=== PATIENT | male | born 1960 | race Caucasian/White ===

== ENCOUNTER 2019-12-26 08:42 | Outpatient (REF) | payer OTHER, SELFPAY | END 2019-12-26 08:43 | disposition home or self-care (01) | LOC: HO.LAB 08:42 | PROVIDERS: Visit Provider Internal Medicine Nephrology | DX: Z13.89 Encounter for screening for other disorder (principal) ==

== ENCOUNTER 2019-12-28 09:17 | Outpatient (REF) | payer OTHER, SELFPAY ==
[2019-12-28 11:01] LABS: Glucose Urine UA NEG (NEG); Leukocyte Esterase Urine NEG (NEG); Nitrite Urine NEG (NEG); Specific Gravity - Urine 1.025 (1.005-1.025); Urine Blood TRACE (NEG); Urine Ketones NEG (NEG); Urine Protein NEG (NEG-TRACE)
[2019-12-28 11:01] LABS: Anion Gap 10 (12-20); Blood Urea Nitrogen 12 mg/dL (9-16); Calcium 9.5 mg/dL (8.4-10.2); Carbon Dioxide 28 mmol/L (22-29); Chloride 103 mmol/L (96-108); Estimated Glomerular Filt Rate > 60; Magnesium 2.1 mg/dL (1.6-2.6); Phosphorus 2.6 mg/dL (2.7-4.5); Sodium 137 mmol/L (135-145)
[2019-12-28 11:09] LABS: Appearance Urine HAZY; Color Urine YELLOW
[2019-12-28 11:25] LABS: Vitamin D 25-OH Total 17.2 ng/mL (>30)
[2019-12-28 11:29] LABS: Mucus Urine 2+ /LPF; RBC Urine 0-2 /HPF (0); Squamous Epithelial Cell Urine TRACE /LPF; WBC Urine 0-2 /HPF (0-4)
[2019-12-28 11:30] LABS: Creatinine Urine 245.04 mg/dL; Protein/Creatinine Ratio, Ur 0.05 (<0.2); Renal w Reflex-LAB USE ONLY Order Verified; Total Protein Urine Random 12 mg/dL (<12)
[2019-12-28 11:32] LABS: Creatinine Urine 248.35 mg/dL; Microalbum/Creatinine Ratio Ur 3.2 ug/mg cr; Total Protein Urine Random 12 mg/dL (<12)
[2019-12-28 11:57] LABS: Renal w Reflex Lab Use Only Order verified
[2019-12-28 11:59] LABS: Total Volume 24 Hour Urine 1850 mL
[2019-12-28 12:01] LABS: Total Volume 24 Hour Urine 1850 mL
[2019-12-28 12:12] LABS: Total Volume 24 Hour Urine 1850 mL
[2019-12-28 12:57] LABS: Creatinine, 24Hr Urine 1.3 G/Day (1.0-2.0); Creatinine, mg/dL 67.88; Creatinine, mg/dL 68.48; Phosphorus mg/dL 39.7 mg/dL; Phosphorus, 24 Hr Urine 0.7 G/Day (0.4-1.3); Sodium 24 Hr Urine 140.6 mmol/Day (40-220)
[2019-12-28 13:25] LABS: Creatinine, 24Hr Urine 1.3 G/Day (1.0-2.0); Creatinine, mg/dL 70.31; Uric Acid, 24 Hr Urine 390.4 mg/Day (250-750); Uric Acid, mg/dL 21.1 mg/dL
[2019-12-28 14:04] LABS: Creatinine (CrCl) 1.02 mg/dL (0.5-1.4); Creatinine Clearance 85.4 mL/min (85-125)
[2019-12-30 18:02] LABS: Calcium, 24 Hr Urine 165 mg/24 h; Calcium/Creatinine Ratio 125 mg/g creat (30-210); Creatinine 24Hr Urine 1.31 g/24 h (0.50-2.15)
[2019-12-30 23:07] LABS: Calcium (PTHI) 10.1 mg/dL (8.6-10.3); PTHI 65 pg/mL (14-64)
[2019-12-31 16:02] LABS: Creatinine, 24H Ur 1.26 g/24 h (0.50-2.15); Magnesium, 24H Urine 56 mg/24 h (28-180); Magnesium, Urine 24H/g Creat 44 mg/g creat (16-90); Total Volume 1850 mL
[2020-01-04 13:56] LABS: 24hr Urine Total Volume 1850 mL; Citric Acid, 24hr Urine 694 mg/24 h (100-1300); Citric Acid/Creat Ratio 24U 547 mg/g creat (60-660); Creatinine, 24U 1.31 g/24 h (0.50-2.15); Oxalic Acid 24 Urine 20.4 mg/24 h (3.6-38.0)
== END 2019-12-28 09:18 | disposition home or self-care (01) ==
LOC: HO.LAB 09:17
PROVIDERS: Visit Provider Internal Medicine Nephrology
DX: N20.0 Calculus of kidney (principal); I12.9 Hypertensive chronic kidney disease with stage 1 through stage 4 chronic kidney disease, or unspecified chronic kidney disease; E11.22 Type 2 diabetes mellitus with diabetic chronic kidney disease; N18.9 Chronic kidney disease, unspecified
CPT/HCPCS: 80051; 81001; 81003; 81015; 82040; 82043; 82306; 82310; 82340; 82507; 82565; 82575; 83735; 83945; 83970; 84100; 84105; 84156; 84300; 84520; 84560

== ENCOUNTER 2022-12-12 10:52 | Outpatient (REF) | payer OTHER, SELFPAY | END 2022-12-12 10:53 | disposition home or self-care (01) | LOC: HO.HHCL 10:52 | PROVIDERS: Visit Provider Nurse Practitioner Primary Care | DX: E11.69 Type 2 diabetes mellitus with other specified complication (principal); E78.5 Hyperlipidemia, unspecified | CPT/HCPCS: 36415; 80053; 80061; 82043; 82570 ==

== ENCOUNTER 2023-12-24 10:50 | Outpatient (REF) | payer OTHER, SELFPAY ==
[2023-12-24 13:51] LABS: Alanine Aminotransferase 18 U/L (0-40); Albumin Level 4.1 g/dL (3.5-5.0); Alkaline Phosphatase 81 U/L (39-117); Anion Gap 11 (12-20); Aspartate Amino Transferase 19 U/L (5-37); Bilirubin Total 0.5 mg/dL (0.0-1.0); Blood Urea Nitrogen 14 mg/dL (9-16); Calcium 10.5 mg/dL (8.4-10.2); Carbon Dioxide 28 mmol/L (22-29); Chloride 103 mmol/L (96-108); Cholesterol 135 mg/dL (<200); Estimated Glomerular Filt Rate > 60; Glucose Random 105 mg/dL (60-115); HDL Cholesterol 41 mg/dL (>40); LDL Cholesterol Calculated 72 mg/dL (<100); Sodium 138 mmol/L (135-145); Total Protein 7.5 g/dL (6.5-8.0); Triglycerides 113 mg/dL (<150)
[2023-12-24 14:24] LABS: Vitamin B12 236 pg/mL (200-900)
== END 2023-12-24 10:51 | disposition home or self-care (01) ==
LOC: HO.CHCLDS 10:50
PROVIDERS: Visit Provider Nurse Practitioner Primary Care
DX: E11.69 Type 2 diabetes mellitus with other specified complication (principal); E78.5 Hyperlipidemia, unspecified
CPT/HCPCS: 36415; 80053; 80061; 82607

== ENCOUNTER 2024-02-25 08:53 | Outpatient (REF) | payer MEDICARE, SELFPAY | END 2024-02-25 08:54 | disposition home or self-care (01) | LOC: HO.HOSX 08:53 | PROVIDERS: Visit Provider Physician Assistant | DX: M25.511 Pain in right shoulder (principal); M75.81 Other shoulder lesions, right shoulder | CPT/HCPCS: 73030; 99202 ==

== ENCOUNTER 2024-02-25 09:15 | Outpatient (AMB) | payer MEDICARE, SELFPAY ==
--- NOTE | 2024-02-25 09:22 | A.OFFVIS_ITS ---
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 He was seen by his PCP who referred to orthopedics. Patient reports his pain has been present for about 12-13 years. He has not had any previous tx. Denies hx of injury. His pain has been getting worse. Limited ROM. Finds no relief with taking morphine and percocet that is prescribed for his back condition. 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 He denies any shoulder injury or surgery in the past. He was seen by his PCP for the shoulders who referred him to our office. He states he has limited ROM and worsening bilateral shoulder pain that is worse on his right. His pain in aggravated at night. He also experiences shoulder pain with lifting his hand to grab something as well as with overusing his arm. He finds no relief with morphine, Percocet and back injections that was prescribed for his back condition. He has not had any prior treatment. [facility] Surgical History (Updated 02/25/24 @ 09:34 by VALERIA Crowley) History of left knee surgery History of appendectomy History of hernia surgery Social History (Updated 02/25/24 @ 09:35 by VALERIA Crowley) Patient Tobacco Use Status: Never used Tobacco Current occupational status: retired Review of Systems Const All systems reviewed & are unremarkable except as noted in HPI and below Physical Exam Vital Signs: BMI result Body Mass Index 30.5 Const General: cooperative, healthy appearing, comfortable, no acute distress, well developed and alert Orientation/consciousness: patient oriented x3 HEENT Head: Yes normal to inspection, Yes normocephalic and Yes atraumatic Eyes General: appearance normal, both eyes and all related structures Resp Effort & Inspection: normal respiratory effort and able to speak in complete sentences Cardio Rate: regular rate Peripheral pulses: Peripheral pulses 2+ throughout GI Palpation (GI): Soft to palpation Skin Lesions: no lesions Rashes: no rashes Neuro General: patient oriented x3 Extrem Other: Right shoulder: Normal to inspection. Tenderness over the bicipital groove and along the deltoid region of the shoulder. Forward flexion to 175, external rotation to 90, internal rotation to S1. weakness with RTC strength. Positive Kwok. NVI. ? Results Reviewed Results Reviewed: Xrays were obtained in the office today and personally reviewed by me of the right shoulder show mild acj oa Assessment & Plan Assessment & Plan (1) Tendinitis of right rotator cuff: Code(s): M75.81 - Other shoulder lesions, right shoulder Category: Medical Plan We discussed options which include PT, NSAIDs and injections. The patient will defer on the injection today and proceed with PT and NSAIDs. If symptoms persist, she will contact me for an injection, otherwise, PRN. Orders: Orders XR shoulder RT min 2V Today M25.511 - Pain in right shoulder PT Evaluation and Treatment Today M75.81 - Other shoulder lesions, right shoulder Patient Instructions: Scribed for Maninder Duran PA-C, by Lucas Osei medical director, on 02/25/2024 at 10:15 AM EST.? I, Maninder Duran PA-C, have personally reviewed and agree with the information entered by the scribe. Coding Level of Care Code New Pt Level 3 (23238) Complex EM visit Add On G2211 Diagnoses Tendinitis of right rotator cuff M75.81
[2024-02-25 09:39] VITALS: BMI 30.5
== END 2024-02-25 10:16 | disposition home or self-care (01) ==
PROVIDERS: Visit Provider Physician Assistant
DX: M75.81 Other shoulder lesions, right shoulder (principal)
CPT/HCPCS: 99203; G2211

== ENCOUNTER 2024-03-30 08:52 | Outpatient (REF) | payer MEDICARE, SELFPAY ==
--- OUTSIDE RECORDS SUMMARY | 2024-03-30 09:10 | XMS_ITS | Encounter Summary ---
Author Organization [employer] Address [address] [facility] 7t [place] [address] Care Team Providers Care Consumer Credit Counselor Name Role Phone Pauline Figueroa LILO Primary Care Provider [phone] Reason for Visit * Reason Comments controlled substance treatment Encounter Details Date Type Department Care Team (Latest Contact Info) Description 03/18/2024 9:30 AM EST Clinical Support [facility] MEDICINE [address] [place] [address] Mariia Cristina, CHERRI [address] [place] [address] Chronic low back pain, unspecified back pain laterality, unspecified whether sciatica present Social History Tobacco Use Types Packs/Day Years Used Date Smoking Tobacco: Never Smokeless Tobacco: Never Alcohol Use Standard Drinks/Week Comments Not Currently 0 (1 standard drink = 0.6 oz pur e alcohol) Alcohol Answer Date Recorded Frequency of Alcohol Consumption Not on file 12/24/2023 Average Number of Drinks Not on file 024 Frequency of Binge Drinking Not on file 12/07 Score 0 12/24/2023 Depression Answer Date Recorded Patient Health Questionnaire-9 Score 0 12/24/2023 Patient Health Questionnaire-9 Score 0 12/24/2023 Last PHQ-9: Questionnaire Data Not on file 1 Housing Stability Answer Date Recorded What is your housing situation today? I have jovita ram 12/24/[address] you li ve. Do you have problems with any of the following? None of the above 12/24/2023 Food Insecurity Answer Date Recorded Within the past 12 months, y ou worried that your food would run out before you got money to buy more: Never True 12/24/2023 Within the past 12 months,th e food you bought just didn't last and you didn't have enough money to get more: Never True Transportation Answer Date Recorded In the past 12 months, has l ack of transportation kept you from medical appts, meetings, work or from getting things needed for daily living? No 12/24/2023 Utilities Answer Date Recorded In the past 12 months, has t he [employer], gas, oil or water company threatened to shut off services in your home? No 12/24/2023 Depression Answer Date Recorded Patient Health Questionnaire-2 Score 0 12/24/2023 Internet Access Answer Date Recorded Internet Access Q1 Yes 12/24/2023 Internet Access Q2 Not on file 12/24/2023 Sex and Gender Information Value Date Recorded Sex Assigned at Male 01/06/2022 10:19 AM EDT Legal Sex Male 10:19 AM EDT Gender Identity Male 01/06/2022 10:19 AM EDT Sexual Orientation Choose not to disclose 2021 10:19 AM EDT documented as of this encounter Progress Notes * Mariia Cristina RN - 03/18/2024 9:30 AM EST S: MANGANESE BREAKER ANTONIA. VALERIA Orozco interpreting. Prescribed morphine CR 15mg PO q12h and Percocet 5mg-325mg Poq8h PRN. States takes medications only as needed. Denies nicotine/ETOH/street Drug/marijuana use. Currently rates pain a 5/10 and states medication is usually 60% effective at alleviating pain. Pain sites are L knee and L hip. Last PCP appt 12/24/23, next 03/24/24. No questions/ concerns at this time. MANGANESE BREAKER Agreement renewed today. O: SCT Tier 4. DUCT MAKER verified today. Pill count performed. Pt has 23 pills from old Rx, full bottle, 56 pills new Rx Morphine CR at this time, 49 expected; has #84 new rx Percocet and 21 pills from oldrx, 41 expected. Medication is not overused by patient, states takes it only as needed. Utox performed, positive for MOP, OXY only, as expected. BPI updated today. Pain severity score of (5), activity interference score of (5.5). Previous BPI completed (03/18/24) with pain severity score of (7), activity interference score of (7). Improvement in pain management. A: MANGANESE BREAKER Contract Revisit: Opioid dependence related to chronic pain. P: Patient to continue taking medication only as prescribed; Next MANGANESE BREAKER RV appointment scheduled for 06/10/24 @ 9:30am, reminder appt given. F/u with PCP 03/24/24. F/U sooner PRN. Patient verbalized understanding and agreed to plan. documented in this encounter Plan of Treatment Upcoming Encounters Date Type Department Care Team ([facility] st Contact Info) Description 06/10/2024 9:30 AM EDT Clinical Support [facility] MEDICINE [address] [place] [phone] Mariia Cristina RN [address] [place] [address] [phone] documented as of this encounter Procedures Procedure Name Priority Date/Time Associated Diagnosis Comments POCT COMFORT-14 URINE DRUG SCREEN Routine 03/18/2024 9:30 AM EST Chronic low back pain, unspecified back pain laterality, unspecified whether sciatica present documented in this encounter Results * POCT COMFORT-14 Urine Drug Screen (03/18/2024 9:30 AM EST) Opiate Screen, Urine Positive Oxycodone Screen, Urine Positive Urine Urine specimen obtained by clean catch procedure / Unknown 03/18/2024 9:30 AM EST Narrative Mariia Cristina RN - 03/18/2024 9:30 AM EST .UTOX cup Lot#[id number] Exp. 12/01/25 Internal Pass Control [facility] POINT OF CARE TEST ENTER/EDIT OR DERABLES Final Result documented in this encounter Visit Diagnoses Diagnosis Chronic low back pain, unspecified back pain laterality, unspecified whether sciatica present documented in this encounter Additional Health Concerns Assessment Noted Time PHQ-9 Depression Total Score: 0 12/24/19 24 9:47 AM EDT documented as of this encounter Care Teams Consumer Credit Counselor Relationship Specialty Start Date End Date Pauline Figueroa ANP [address] [place] [address] PCP - General Family Medicine 01/28/22 documented as of this encounter
--- OUTSIDE RECORDS SUMMARY | 2024-03-30 09:10 | XMS_ITS | Encounter Summary ---
Author Organization [employer] Address [address] [facility] 7t [place] [address] Care Team Providers Care Claim Manager Name Role Phone Pauline Figueroa Primary Care Provider [phone] Reason for Visit * Reason Comments Med Refill Encounter Details Date Type Department Care Team ([facility] st Contact Info) Description 03/29/2024 Refill [facility] MEDICINE [address] [place], [place] [phone] Pauline Figueroa ANP [address] [place] [address] Chronic bilateral low back pain without sciatica Social History Tobacco Use Types Packs/Day Years [...] the past 12 months, has t he electric, gas, oil or water company threatened to [...] AM EDT documented as of this encounter Miscellaneous Notes * Telephone Encounter - Letha Das RN - 03/29/2024 3:25 PM EST Checked [facility], oxycodone-acetaminophen Rx: - sold on 03/04/24 - 84 tablets, 28 day supply - Pt due for refill on 04/01. Called [facility] pharmacy, pt due in 2 days (03/31). Will task to send to PCP for refill tomorrow 03/30 (2 days early). documented in this encounter Plan of Treatment Upcoming Encounters Date Type Department Care Team (Late st Contact Info) Description 06/10/2024 9:30 AM EDT Clinical Support [facility] MEDICINE [address] [place], [place] [phone] Mariia Cristina, CHERRI [address] [place], [place] [phone] documented as of this encounter Visit Diagnoses Diagnosis Chronic bilateral low back pain without sciatica documented in this encounter Additional Health Concerns Assessment Noted Time PHQ-9 Depression Total Score: 0 12/24/19 24 9:47 AM EDT documented as of this encounter Care Teams Claim Manager Relationship Specialty Start Date End Date Pauline Figueroa ANP [address] [place] [address] PCP - General Family Medicine 01/28/22 documented as of this encounter
--- OUTSIDE RECORDS SUMMARY | 2024-03-30 09:10 | XMS_ITS | Encounter Summary ---
Author Organization [employer] Address [address] [facility] 7t [place] [address] Care Team Providers Care Manager Home Improvement Name Role Phone Pauline Figueroa Primary Care Provider [phone] Reason for Visit * Reason Comments Med Refill Encounter Details Date Type Department Care Team ([facility] Contact Info) Description 03/22/2024 Refill [facility] MEDICINE [address] [place], [place] [phone] Pauline Figueroa ANP [address] [place] [address] Chronic constipation Social History Tobacco Use Types Packs/Day Years [...] AM EDT documented as of this encounter Plan of Treatment Upcoming Encounters Date Type Department Care Team (Late st Contact Info) Description 06/10/2024 9:30 AM EDT Clinical Support [facility] MEDICINE [address] [place] [phone] Mraiia Cristina RN [address] [place] [address] documented as of this encounter Visit Diagnoses Diagnosis Chronic constipation Unspecified constipation documented in this encounter Additional Health Concerns Assessment Noted Time PHQ-9 Depression Total Score: 0 12/24/19 24 9:47 AM EDT documented as of this encounter Care Teams Manager Home Improvement Relationship Specialty Start Date End Date Pauline Figueroa ANP [address] [place] [address] PCP - General Family Medicine 01/28/22 documented as of this encounter
--- OUTSIDE RECORDS SUMMARY | 2024-03-30 09:10 | XMS_ITS | Encounter Summary ---
Author Organization [employer] Address [address] [facility] 7t [place] [address] Care Team Providers Care Sas Statistical Programmer Name Role Phone Pauline Figueroa Primary Care Provider [phone] Reason for Visit * Reason Comments Med Refill Encounter Details Date Type Department Care Team ([facility] Contact Info) Description 03/16/2024 Refill [facility] MEDICINE [address] [place], [place] [phone] Pauline Figueroa ANP [address] [place] [address] Insomnia, unspecified type Social History Tobacco Use Types Packs/Day Years [...] Description 06/10/2024 9:30 AM EDT Clinical Support [facility] MEDICINE [address] [place] [address] Mariia Cristina RN [address] [place] [address] documented as of this encounter Visit Diagnoses Diagnosis Insomnia, unspecified type documented in this encounter Additional Health Concerns Assessment Noted Time PHQ-9 Depression Total Score: 0 12/24/19 24 9:47 AM EDT documented as of this encounter Care Teams Sas Statistical Programmer Relationship Specialty Start Date End Date Pauline Figueroa ANP [address] [place] [address] PCP - General Family Medicine 01/28/22 documented as of this encounter
--- OUTSIDE RECORDS SUMMARY | 2024-03-30 09:10 | XMS_ITS | Clinical Summary ---
Author Organization [facility] ity Address [address] [place] [address] Care Team Providers Care Investment Professional Name Role Phone Unavailable Primary Care Provider Unavailabl e Social History Tobacco Use Types Packs/Day Years Used Date Smoking Tobacco: Never Assessed Sex and Gender Information Value Date Recorded Sex Assigned at Not on file Gender Identity Not on file Sexual Orientation Not on file Plan of Treatment Health Maintenance Due Date Last Done Comments DTaP,Tdap,and Td Vaccines (1 - Tdap) 05/28/1979 Zoster Vaccines (1 of 2) 2010 Cholesterol Screening (Lipid Panel) 02/09/2022 Colorectal Cancer Screening: Colonoscopy 02/09/2022 Depression Screening 02/09/2022 HIV Screening 02/09/2022 Hepatitis C Screening 02/09/2022 Social Influencers of Health Screening 02/09/2022 COVID-19 Vaccine ( - 2023-2 5 season) 2023 Influenza Vaccine (#1) 2023 RSV Immunization Patients 60 + Years Old (1 - 1-dose 75+ series) 05/28/2035 HIB Vaccines Aged Out No longer eligi ble based on patient's age to complete this topic HPV Vaccines Aged Out No longer eligi ble based on patient's age to complete this topic Hepatitis A Vaccines Aged Out No long er eligible based on patient's age to complete this topic Hepatitis B Vaccines Aged Out No long er eligible based on patient's age to complete this topic IPV Vaccines Aged Out No longer eligi ble based on patient's age to complete this topic MMR Vaccines Aged Out No longer eligi ble based on patient's age to complete this topic Meningococcal ACWY Vaccine Aged Out N o longer eligible based on patient's age to complete this topic Pneumococcal Vaccine: Pediat rics (0 to 5 Years) and At-Risk Patients (6 to 64 Years) Aged Out No longer eligible b ased on patient's age to complete this topic RSV Immunization Patients Un joss 20 months Aged Out No longer eligible b ased on patient's age to complete this topic Varicella Vaccines Aged Out No longer eligible based on patient's age to complete this topic
--- OUTSIDE RECORDS SUMMARY | 2024-03-30 09:10 | XMS_ITS | Encounter Summary ---
Author Organization [employer] Address [address] [facility] 7t [place] [address] Care Team Providers Care Tile Sorter Name Role Phone Pauline Figueroa Primary Care Provider [phone] Reason for Visit * Reason Comments Med Refill Encounter Details Date Type Department Care Team ([facility] st Contact Info) Description 03/14/2024 Refill [facility] MEDICINE [address] [place], [place] [phone] Pauline Figueroa ANP [address] [place] [address] Chronic midline low back pain, unspecified whether sciatica present Social History Tobacco [...] Description 06/10/2024 9:30 AM EDT Clinical Support [facility] MEDICINE [address] [place] [address] Mariia Cristina, RN [address] [place] [address] documented as of this encounter Visit Diagnoses Diagnosis Chronic midline low back pain, unspecified whether sciatica present documented in this encounter Additional Health Concerns Assessment Noted Time PHQ-9 Depression Total Score: 0 12/24/19 24 9:47 AM EDT documented as of this encounter Care Teams Tile Sorter Relationship Specialty Start Date End Date Pauline Figueroa ANP [address] [place] [address] PCP - General Family Medicine 01/28/22 documented as of this encounter
--- OUTSIDE RECORDS SUMMARY | 2024-03-30 09:10 | XMS_ITS | Encounter Summary ---
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; Type 2 diabetes mellitus with hyperlipidemia ([facility]) Social History Tobacco Use Types Packs/Day Years [...] AM EDT documented as of this encounter Last Filed Vital Signs Vital Sign Reading Time Taken Comments Blood Pressure 139/82 03/24/2024 10:16 AM EST Pulse 54 03/24/2024 10:16 AM EST Temperature 36.9 ??C (98.4 ??F) 03/24/2024 10:[address] Respiratory Rate 20 03/24/2024 10:16 AM EST Oxygen Saturation 97% 03/24/2024 10:16 AM EST Inhaled Oxygen Concentration - - Weight 88.9 kg (196 lb) 03/24/2024 10:16 AM EST Height 168.9 cm (5' 6.5 ) 03/24/2024 10:16 AM ES T Body Mass Index 31.16 03/24/2024 10:16 AM EST documented in this encounter Plan of Treatment Upcoming Encounters Date Type Department Care Team (Late st Contact Info) Description 06/10/2024 9:30 AM EDT Clinical Support [facility] MEDICINE [address] [place] [address] Mariia Cristina, CHERRI [address] [place], [place] [phone] Scheduled Orders Name Type Priority Associated Diagnoses Orde r Schedule Basic Metabolic Panel Lab Routine Serum calcium elevated Type 2 diabetes mellitus with hyperlipidemia ([facility]) Expected: 03/24/2024 (Approximate), Expires: 03/24/2025 Albumin, Random Urine W/Creatinine Lab Routine Type 2 diabetes mellitus with hyperlipidemia ([facility]) Expected: 03/24/2024 (Approximate), Expires: 03/24/2025 Hemoglobin A1c Lab Routine Type 2 diabetes mellitus with hyperlipidemia ([facility]) Expected: 03/24/2024 (Approximate), Expires: 03/24/2025 documented as of this encounter Visit Diagnoses Diagnosis Serum calcium elevated- Primary Hypercalcemia alf (current) use of opiate analgesic Type 2 diabetes mellitus with hyperlipidemia ([facility]) documented in this encounter Additional Health Concerns Assessment Noted Time PHQ-9 Depression Total Score: 0 12/24/19 24 9:47 AM EDT documented as of this encounter Care Teams Javascript Application Developer Relationship Specialty Start Date End Date Pauline Figueroa ANP [address] [place] [phone] PCP - General Family Medicine 01/28/22 documented as of this encounter
--- OUTSIDE RECORDS SUMMARY | 2024-03-30 09:10 | XMS_ITS | Encounter Summary ---
Author Organization [employer] Address [address] [facility] 7t [place] [address] Care Team Providers Care Box Spinner Name Role Phone Pauline Figueroa LILO Primary Care Provider [phone] Encounter Details Date Type Department Care Team (Latest Contact Info) Description 03/24/2024 Travel Social History Tobacco Use Types Packs/Day Years [...] Description 06/10/2024 9:30 AM EDT Clinical Support [facility] MEDICINE [address] [place] [phone] Mariia Cristina RN [address] [place] [address] documented as of this encounter Visit Diagnoses Not on filedocumented in this encounter Additional Health Concerns Assessment Noted Time PHQ-9 Depression Total Score: 0 12/24/19 24 9:47 AM EDT documented as of this encounter Care Teams Box Spinner Relationship Specialty Start Date End Date Pauline Figueroa ANP [address] [place] [address] PCP - General Family Medicine 01/28/22 documented as of this encounter
--- OUTSIDE RECORDS SUMMARY | 2024-03-30 09:10 | XMS_ITS | Encounter Summary ---
Author Organization [employer] Address [address] [facility] 7t [place] [address] Care Team Providers Care Business Improvement Manager Name Role Phone Pauline Figueroa Primary Care Provider [phone] Reason for Visit * Reason Comments Med Refill Encounter Details Date Type Department Care Team ([facility] Contact Info) Description 03/03/[address] [facility] MEDICINE [address] [place], [place] [phone] Pauline Figueroa ANP [address] [place] [address] Chronic bilateral low back pain without sciatica [...] Description 06/10/2024 9:30 AM EDT Clinical Support [facility] MEDICINE [address] [place] [address] Mariia Cristina RN [address] [place] [address] documented as of this encounter Visit Diagnoses Diagnosis Chronic bilateral low back pain without sciatica documented in this encounter Additional Health Concerns Assessment Noted Time PHQ-9 Depression Total Score: 0 12/24/19 24 9:47 AM EDT documented as of this encounter Care Teams Business Improvement Manager Relationship Specialty Start Date End Date Pauline Figueroa ANP [address] [place] [address] PCP - General Family Medicine 01/28/22 documented as of this encounter
--- OUTSIDE RECORDS SUMMARY | 2024-03-30 09:10 | XMS_ITS | Encounter Summary ---
Author Organization [employer] Address 75 [facility] 7t [place] [address] Care Team Providers Care Fur Blower Operator Name Role Phone Pauline Figueroa Primary Care Provider [phone] Reason for Visit * Reason Comments Med Refill Encounter Details Date Type Department Care Team ([facility] st Contact Info) Description 03/11/[address] [facility]INE [address] [place], [place] [phone] Pauline Figueroa ANP [address] [place] [address] Other insomnia Social History Tobacco Use Types Packs/Day Years [...] Description 06/10/2024 9:30 AM EDT Clinical Support [facility] MED[facility] [address] [place] [address] Mariia Cristina RN [address] [place] [address] documented as of this encounter Visit Diagnoses Diagnosis Other insomnia documented in this encounter Additional Health Concerns Assessment Noted Time PHQ-9 Depression Total Score: 0 12/24/19 24 9:47 AM EDT documented as of this encounter Care Teams Fur Blower Operator Relationship Specialty Start Date End Date Pauline Figueroa ANP [address] [place] [address] PCP - General Family Medicine 01/28/22 documented as of this encounter
--- OUTSIDE RECORDS SUMMARY | 2024-03-30 09:10 | XMS_ITS | Encounter Summary ---
Author Organization [employer] Address 75 [facility] 7t [place] [address] Care Team Providers Care Bowl Turner Name Role Phone Pauline Figueroa LILO Primary Care Provider [phone] Encounter Details Date Type Department Care Team (Latest Contact Info) Description 03/18/2024 Travel Social History Tobacco Use Types Packs/Day [...] Description 06/10/2024 9:30 AM EDT Clinical Support [facility] MEDICINE [address] [place] [phone] Mariia Cristina RN [address] [place] [address] documented as of this encounter Visit Diagnoses Not on filedocumented in this encounter Additional Health Concerns Assessment Noted Time PHQ-9 Depression Total Score: 0 12/24/19 24 9:47 AM EDT documented as of this encounter Care Teams Bowl Turner Relationship Specialty Start Date End Date Pauline Figueroa ANP 230 [place] [address] PCP - General Family Medicine 01/28/22 documented as of this encounter
--- OUTSIDE RECORDS SUMMARY | 2024-03-30 09:10 | XMS_ITS | Encounter Summary ---
Author Organization [employer] Address 75 [facility] 7t [place] [address] Care Team Providers Care Streetcar Starter Name Role Phone Carolina Pauline NAGY Primary Care Provider [phone] Reason for Visit * Reason Onset Date Comments chart prep 03/23/2024 Encounter Details Date Type Department Care Team ([facility] st Contact Info) Description 03/23/2024 Telephone [facility] MEDICINE [address] [place] [address] Beth Juarez MA chart prep Social History Tobacco Use Types Packs/Day Years [...] encounter Miscellaneous Notes * Telephone Encounter - Beth Juarez MA - 03/23/2024 10:51 AM EST Chart Prep Labs: done Images: done Vaccines due: yes Referrals: ortho auth Screenings: none Overdue care gaps: Oral Health documented in this encounter Plan of Treatment Upcoming Encounters Date Type Department Care Team (Late st Contact Info) Description 06/10/2024 9:30 AM EDT Clinical Support [facility] MEDICINE [address] [place] [address] Mariia Cristina RN [address] [place] [address] documented as of this encounter Visit Diagnoses Not on filedocumented in this encounter Additional Health Concerns Assessment Noted Time PHQ-9 Depression Total Score: 0 12/24/19 24 9:47 AM EDT documented as of this encounter Care Teams Streetcar Starter Relationship Specialty Start Date End Date Pauline Figueroa ANP 230 [place] [address] PCP - General Family Medicine 01/28/22 documented as of this encounter
--- OUTSIDE RECORDS SUMMARY | 2024-03-30 09:10 | XMS_ITS | Clinical Summary ---
Author Organization [employer] Address 75 [facility] 7t [place] [address] Care Team Providers Care Rivet Tapping Machine Operator Name Role Phone Pauline Figueroa LILO Primary Care Provider [phone] Allergies Active Allergy Reactions Criticality Noted Date Comments Pravastatin Other 01/08/2011 Other reaction(s): elevated CPK Medications naloxone (Narcan) 4 mg/0.1 mL nasal spray spray 0.1 milliliter by intranasal route in 1 nostril may repeat dose every 2-3 minutes as needed alternating nostrils with each dose 022 Active Blood Glucose Monitoring Suppl (FreeStyle [place]) kit Freestyle freedom kit Use as directed twice daily 016 Active FreeStyle lancets Freestyle lancers 28 gauge Use as directed 022 Active glucose blood (OneTouch Verio) test stripIndications: Type 2 diabetes mellitus with hyperlipidemia ([facility]/HCC) ([facility]) USE DIRECTED TO TEST BLOOD SUGAR TWICE DAILY 100 each 11 024 Active Blood Glucose Monitoring Suppl (OneTouch Verio) w/Device kitIndications:Ty pe 2 diabetes mellitus with hyperlipidemia (CMS/HCC) ([facility]) USE DIRECTED TO TEST BLOOD SUGAR TWICE DAILY 1 kit 024 Active OneTouch Delica Lancets 33G miscIndications:T ype 2 diabetes mellitus with hyperlipidemia (CMS/HCC) ([facility]) USE DIRECTED TO TEST BLOOD SUGAR TWICE DAILY 100 each 5 024 Active metFORMIN (Glucophage) 500 MG tablet TAKE 1 TABLET BY MOUTH TWICE DAILY IN THE MORNING AND IN THE EVENING WITH MEALS 180 tablet 1 024 Active ezetimibe (Zetia) 10 MG tablet TAKE 1 TABLET BY MOUTH EVERY MORNING 90 tablet 1 024 Active hydroCHLOROthiazi de 12.5 MG tabletIndications :Essential hypertension TAKE 1 TABLET BY MOUTH EVERY DAY 90 tablet 1 024 Active sildenafil (Viagra) 50 MG tabletIndications :Erectile dysfunction, unspecified erectile dysfunction type TAKE 1 TABLET 1 HOUR BEFORE SEXUAL RELATIONS ONCE DAILY NEEDED. 20 tablet 2 024 Active oxyCODONE-acetami nophen (Percocet) 5-325 MG tabletIndications :Chronic bilateral low back pain without sciatica TAKE 1 TABLET BY MOUTH EVERY 8 HOURS NEEDED FOR SEVERE PAIN 84 tablet 024 Active melatonin 5 MG tabletIndications :Other insomnia TAKE 2 TABLETS BY MOUTH EVERY DAY 1 HOUR BEFORE BEDTIME 60 tablet 2 025 Active morphine CR (MS Contin) 15 MG 12 hr tabletIndications :Chronic midline low back pain, unspecified whether sciatica present TAKE 1 TABLET BY MOUTH TWICE DAILY DO NOT BREAK, CRUSH, DISSOLVE OR CHEW 56 tablet 025 Active traZODone (Desyrel) 50 MG tabletIndications :Insomnia, unspecified type TAKE 1 TABLET BY MOUTH AT BEDTIME 30 tablet 3 025 Active GaviLAX 17 GM/SCOOP powderIndications :Chronic constipation MIX 17G (1 CAPFUL) IN 8 OUNCES OF WATER AND TAKE BY MOUTH TWICE A DAY NEEDED CONSTIPATION 510 g 5 025 Active rosuvastatin (Crestor) 20 MG tabletIndications :Type 2 diabetes mellitus with hyperlipidemia (CMS/HCC) (CMS/HCC) Take 1 tablet (20 mg) by mouth in the morning. 90 tablet 1 025 Active rosuvastatin (Crestor) 20 MG tablet TAKE 1 TABLET BY MOUTH EVERY DAY IN THE MORNING 90 tablet 1 024 2024 Discontinued(R eorder (will not trigger notification to Pharmacy)) traZODone (Desyrel) 50 MG tabletIndications :Insomnia, unspecified type TAKE 1 TABLET BY MOUTH AT BEDTIME 30 tablet 3 024 2024 Discontinued melatonin 5 MG tabletIndications :Other insomnia TAKE 2 TABLETS BY MOUTH EVERY DAY 1 HOUR BEFORE BEDTIME 60 tablet 2 024 2024 Discontinued GaviLAX 17 GM/SCOOP powderIndications :Chronic constipation MIX 17G (1 CAPFUL) IN 8 OUNCES OF WATER AND TAKE BY MOUTH TWICE A DAY NEEDED FOR CONSTIPATION 510 g 3 024 2024 Discontinued oxyCODONE-acetami nophen (Percocet) 5-325 MG tabletIndications :Chronic bilateral low back pain without sciatica TAKE 1 TABLET BY MOUTH EVERY 8 HOURS NEEDED FOR SEVERE PAIN 56 tablet 024 2023 Discontinued morphine CR (MS Contin) 15 MG 12 hr tabletIndications :Chronic midline low back pain, unspecified whether sciatica present TAKE 1 TABLET BY MOUTH TWICE DAILY. 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 Per PDMP 01/2024 MME range from 30-47 Obstructive sleep apnea syndrome 02/19/2018 Low HDL (under 40) 09/30/2017 Type 2 diabetes mellitus with hyperlipidemia ([facility] S/HCC) 04/06/2015 Chronic kidney disease, stage II (mild) 03/26/19 13 Kidney stone 03/26/2012 Benign prostatic hyperplasia 10/24/2011 Chronic low back pain 10/24/2011 Hyperlipidemia 10/24/2011 Obesity 10/24/2011 Encounters Date Type Department Care Team Description 03/29/2024 Refill [facility] [address] [place] [phone] Pauline Figueroa ANP Chronic bilateral low back pain without sciatica 03/24/2024 10:15 AM EST Office Visit [facility] [address] [place] [address] Pauline Figueroa ANP Serum calcium elevated (Primary Dx); longterm (current) use of opiate analgesic; Type 2 diabetes mellitus with hyperlipidemia (CMS/HCC) 03/24/2024 Travel 03/23/2024 Telephone [facility] [address] [place] [address] Beth Juarez, YASMEEN chart prep 03/22/2024 Refill [facility] [address] [place] [address] Pauline Figueroa ANP Chronic constipation 03/18/2024 9:30 AM EST Clinical Support [facility] [address] [place] [address] Mariia Cristina RN Chronic low back pain, unspecified back pain laterality, unspecified whether sciatica present 03/18/2024 Travel 03/16/2024 Refill [facility] [address] [place] [address] Pauline Figueroa ANP Insomnia, unspecified type 03/14/2024 Refill [facility] [address] [place] [address] Pauline Figueroa ANP Chronic midline low back pain, unspecified whether sciatica present 03/11/2024 Refill [facility] [address] [place] [address] Pauline Figueroa ANP Other insomnia 03/03/2024 Refill [facility] [address] [place] [address] Pauline Figueroa ANP Chronic bilateral low back pain without sciatica 02/21/2024 Refill [facility] [address] [place] [address] Pauline Figueroa ANP Erectile dysfunction, unspecified erectile dysfunction type 02/08/2024 Refill [facility] [address] [place] [address] Pauline Figueroa ANP Chronic bilateral low back pain without sciatica; Chronic midline low back pain, unspecified whether sciatica present 01/28/2024 Telephone [facility] [address] [place] [address] Yudi Saxena RN Results 01/25/2024 Refill [facility] [address] [place] [address] Pauline Figueroa ANP Chronic bilateral low back pain without sciatica 01/20/2024 Refill [facility] [address] [place] [address] Pauline Figueroa ANP Chronic constipation; Tinea pedis of both feet 01/19/2024 Refill [facility] [address] [facility] [place] [address] Pauline Figueroa ANP Essential hypertension 01/12/2024 Refill [facility] [address] [place] [address] Pauline Figueroa ANP Chronic midline low back pain, unspecified whether sciatica present 01/07/2024 Refill [facility] [address] [place] [address] Pauline Figueroa ANP Chronic bilateral low back pain without sciatica from Last 3 Months Immunizations Name Administration Dates Next Due Influenza injectable quadriv alent IIV4 with preservative 12/19/2014 Influenza injectable quadrivalent preservative f ree 11/24/2022,04/16/2022 Influenza, IIV3, injectable 02/15/2014 Influenza, Split (incl. purified surface antigen ) 12/07/2012,12/24/2011 MMR 11/27/2010 Moderna Covid-19 Vaccine 12+ 08/21/2020,07/25/19 21 Pneumococcal Conjugate PCV 20 12/24/2023 Pneumococcal Polysaccharide PPSV23 01/22/2021 TD (adult), 2 Lf tetanus tox oid, preservative free, adsorbed 05/18/2008 Tdap 01/22/2021 Social History Tobacco Use Types Packs/Day Years Used Date Smoking Tobacco: Never Smokeless Tobacco: Never Tobacco Cessation:Counseling Given: Not Answered Alcohol Use Standard Drinks/Week Comments Not Currently [...] not to disclose 2021 10:19 AM EDT Last Filed Vital Signs Vital Sign Reading [...] Mass Index 31.16 03/24/2024 10:16 AM EST Plan of Treatment Upcoming Encounters Date Type Department Care Team (Late st Contact Info) Description 06/10/2024 9:30 AM EDT Clinical Support [facility] MEDICINE [address] [place] [address] Mariia Cristina, CHERRI [address] [place], [place] [phone] Health Maintenance Due Date Last Done Comments CT Colonography 1960 Colonoscopy 1960 FIT DNA/Cologuard 1960 FIT 1960 FOBT 1960 HIV Screening 1960 Sigmoidoscopy 1960 Eye Exam 1970 Hepatitis C Screening 1978 Zoster Vaccines (1 of 2) 2010 COVID-19 Vaccine (3 - season) 2023 08/21/2020, 07/24/2020 Influenza Vaccine (#1) 2023 , 04/16/2022, 12/19/2014, Additional history exists Diabetes: Urine Protein Screening 12/13/2023 12/12/2022, 04/05/2021, 12/28/2019, Additional history exists Diabetes: Hemoglobin A1C 06/23/2024 024, 08/05/2023, 12/12/2022, Additional history exists Alcohol/Substance Use Screening 12/23/2024 12/24/2023 Colorectal Cancer Screening 12/23/2024 Postponed from 1960 (Patient Refused) Depression Screening 12/23/2024 12/24/2023, 12/24/19 24 Diabetes: Foot Exam 12/23/2024 12/24/2023, 12/24/2023, 12/24/2023, Additional history exists Lipid Panel 12/23/2024 12/24/2023, 08/2022, 04/05/2021, Additional history exists SDOH Screening 12/23/2024 12/24/2023 Tobacco Screening 03/24/2025 03/24/2024 DTaP/Tdap/Td Vaccines (2 - Td or Tdap) 01/22/2031 01/22/2021, 05/18/2008 RSV Patients and Patients Aged 60 years or older (1 - 1-dose 75+ series) 05/28/2035 Pneumococcal Vaccine: Pediatrics (0 to 5 Years) and At-Risk Patients (6 to 64 Years) Completed 12/24/2023, 01/22/2021 HIB Vaccines Aged Out No longer eligi [...] patient's age to complete this topic Meningococcal Vaccine Aged Out No rebekah asia eligible based on patient's age to complete this topic RSV under 20 months Aged Out No longe r eligible based on patient's age to complete this topic Rotavirus Vaccines Aged Out No longer eligible based on patient's age to complete this topic Procedures Procedure Name Priority Date/Time Associated Diagnosis Comments POCT COMFORT-14 URINE DRUG SCREEN Routine 03/18/2024 9:30 AM EST Chronic low back pain, unspecified back pain laterality, unspecified whether sciatica present LIPID PANEL, STANDARD Routine 12/24/2023 10:52 AM EDT Type 2 diabetes mellitus with hyperlipidemia (CMS/HCC) (CMS/HCC) POCT GLYCATED HEMOGLOBIN, TOTAL Routine 12/24/2023 9:49 AM EDT Type 2 diabetes mellitus with hyperlipidemia (CMS/HCC) (CMS/HCC) ALBUMIN, RANDOM URINE W/CREATININE Routine 12/12/2022 10:53 AM EDT Type 2 diabetes mellitus with hyperlipidemia (CMS/HCC) from Last 3 Months or Most Recently Relevant to Health Maintenance Results * POCT COMFORT-14 Urine Drug Screen (03/18/2024 9:30 AM EST) Opiate Screen, Urine Positive Oxycodone Screen, Urine Positive Urine Urine specimen obtained by clean catch procedure / Unknown 03/18/2024 9:30 AM EST Narrative Mariia Cristina, CHERRI - 03/18/2024 9:30 AM EST .UTOX cup Lot#[id number] Exp. 12/01/25 Internal Pass Control [facility] POINT OF CARE TEST ENTER/EDIT OR DERABLES Final Result * Lipid Panel, Standard (12/24/2023 10:52 AM EDT) Triglycerides 113 <150 mg/dL [facility] Comment:Desirable Triglyceri de: less than 150 mg/dLBorderline High Triglyceride 150-199 mg/dLHigh Triglyceride: 200-499 mg/dLVery High Triglyceride: greater than or equal to 5OO mg/dL Cholesterol 135 <200 mg/dL [facility] Comment:Desirable Cholestero l: less than 200 mg/dLBorderline High Cholesterol: 200-239 mg/dLHigh Cholesterol: greater than 239 mg/dL LDL Cholesterol Calculated 72 <100 mg/dL [facility] Comment:Desirable LDL: less than 100 mg/dLNear Optimal/Above Optimal LDL: 110- 129 mg/dLBorderline High LDL: 130-159 mg/dLHigh LDL: 160-189 mg/dLVery High LDL: greater than or equal to 190 mg/dL HDL Cholesterol 41 >40 mg/dL [facility] Comment:Desirable HDL: great er than 40 mg/dL Note: This HDL assay may give artificially low results in patients with liver disease. Blood Venous blood specimen / Unknown 12/24/2023 10:52 AM EDT 12/24/2023 1:14 PM EDT us Pauline NAGY LAB BLOOD ORDERABLES Final Resul t [facility] [address] [place] [address] [phone] * (ABNORMAL) POCT HGB A1C (12/24/2023 9:49 AM EDT) Hemoglobin A1C 6.7(A) 4.0 - 6.0 % QC Media Lot # [id number] Lot# Expiration Date [id number] Blood 12/24/2023 9:49 AM EDT us Pauline Figueroa ANP POINT OF CARE TEST ENTER/EDIT OR DERABLES Final Result * Albumin, Random Urine W/Creatinine (12/12/2022 10:53 AM EDT) Creatinine, Urine 211.06 mg/dL [facility] Microalbumin Urine 7.0 mg/L [facility] Microalbum Creatinine Ratio Ur 3.3 <30 ug/mg cr [facility] Comment:Albumin/Creatinine R atio Reference Ranges: Normal: < 30 ug/mg creatinine Microalbuminuria: 30 - 300 ug/mg creatinineClinical Albuminuria: > 300 ug/mg creatinine Urine (Urine, Random) 12/12/2022 10:53 AM EDT 12/12/2022 12:57 PM EDT us Pauline NAGY LAB URINE ORDERABLES Final Resul t Performing Organization Address City/State/[facility] Co de Phone Number [facility] [address] [place] [address] [phone] from Last 3 Months or Most Recently Relevant to Health Maintenance Insurance [employer] PPO [facility] STANDARD Care Teams Rivet Tapping Machine Operator Relationship Specialty Start Date End Date Pauilne Figueroa ANP [address] [place] [address] PCP - General Family Medicine 01/28/22
--- OUTSIDE RECORDS SUMMARY | 2024-03-30 09:11 | XMS_ITS | Encounter Summary ---
Author Organization [employer] Address 75 [facility] [address] [place] [address] Care Team Providers Care Shale Processing Technician Name Role Phone Pauline Figueroa Primary Care Provider [phone] Reason for Visit * Reason Onset Date Comments Med Refill 11/18/2023 Encounter Details Date Type Department Care Team ([facility] st Contact Info) Description 11/18/2023 Telephone [facility] MEDICINE [address] [place], [place] [phone] Pauline Figueroa ANP [address] [place], [place] [phone] Med Refill Social History Tobacco Use Types Packs/Day Years [...] encounter Miscellaneous Notes * Telephone Encounter - Scott Carey - 11/18/2023 11:05 AM EDT Tc from pt requesting a refill for oxyCODONE-acetaminophen (Percocet) 5-325 MG tablet and morphine CR (MS Contin) 15 MG 12 hr tablet documented in this encounter Plan of Treatment Upcoming Encounters Date Type Department Care Team (Late st Contact Info) Description 06/10/2024 9:30 AM EDT Clinical Support [facility] MEDICINE [address] [place] [address] Mariia Cristina RN [address] [place], [place] [phone] documented as of this encounter Visit Diagnoses Not on filedocumented in this encounter Care Teams Shale Processing Technician Relationship Specialty Start Date End Date Pauline Figueroa ANP [address] [place] [address] PCP - General Family Medicine 01/28/22 documented as of this encounter
--- OUTSIDE RECORDS SUMMARY | 2024-03-30 09:11 | XMS_ITS | Encounter Summary ---
Author Organization [facility] Address [address] [place] [address] 7 [place] [address] Care Team Providers Care Vehicle Technician Name Role Phone Pauline Figueroa Primary Care Provider [phone] Reason for Visit * Reason Comments Med Refill Encounter Details Date Type Department Care Team ([facility] Contact Info) Description 11/13/2022 Refill [facility] CHC MED & PEDS [address] [place], [place] [phone] Mulu Villar MD [address] [place] [address] Chronic bilateral low back pain without sciatica [...] Encounters Date Type Department Care Team (Late Contact Info) Description 06/10/2024 9:30 AM EDT Clinical Support [facility] MEDICINE [address] [place] [address] Mariia Cristina RN [address] [place] [address] documented as of this encounter Visit Diagnoses Diagnosis Chronic bilateral low back pain without sciatica documented in this encounter Care Teams Vehicle Technician Relationship Specialty Start Date End Date Pauline Figueroa ANP [address] [place] [address] PCP - General Family Medicine 01/28/22 documented as of this encounter
--- OUTSIDE RECORDS SUMMARY | 2024-03-30 09:11 | XMS_ITS | Encounter Summary ---
Author Organization [employer] [facility] Address [address] [place] [address] [place], [place] [address] Care Team Providers Care Control Engineer Name Role Phone Pauline Figueroa Primary Care Provider [phone] Reason for Visit * Reason Comments Med Refill Encounter Details Date Type Department Care Team ([facility] Contact Info) Description 06/21/2022 Refill [facility] MED & PEDS [address] [place] [address] Pauline Figueroa ANP [address] [place] [address] Chronic constipation Social History Tobacco Use Types [...] Description 06/10/2024 9:30 AM EDT Clinical Support [facility] MEDICINE [address] [place] [address] Mariia Cristina, CHERRI [address] [place] [address] documented as of this encounter Visit Diagnoses Diagnosis Chronic constipation Unspecified constipation documented in this encounter Care Teams Control Engineer Relationship Specialty Start Date End Date Pauline Figueroa ANP [address] [place] [address] PCP - General Family Medicine 01/28/22 documented as of this encounter
--- OUTSIDE RECORDS SUMMARY | 2024-03-30 09:11 | XMS_ITS | Encounter Summary ---
Author Organization [employer] Address 75 [facility] [address]t [place] [address] Care Team Providers Care Marketing Traffic Manager Name Role Phone Pauline Figueroa Primary Care Provider [phone] Reason for Visit * Reason Comments Med Refill Encounter Details Date Type Department Care Team ([facility] Contact Info) Description 01/03/2023 Refill [facility] MED[facility]INE [address] [place], [place] [phone] Pauline Figueroa ANP [address] [place] [address] Other insomnia Social History Tobacco Use Types Packs/Day Years Used Date Smoking Tobacco: Never Smokeless Tobacco: Never Alcohol Use Standard Drinks/Week Comments Not Currently 0 (1 standard drink = 0.6 oz pur e alcohol) Housing Stability Answer Date Recorded What is your housing situation today? I have jovita ram 12/25/[address] you li ve. Do you have problems with any of the following? None of the above 12/25/2022 Food Insecurity Answer Date Recorded Within the past 12 months, y ou worried that your food would run out before you got money to buy more: Never True 12/25/2022 Within the past 12 months,th e food you bought just didn't last and you didn't have enough money to get more: Never True Transportation Answer Date Recorded In the past 12 months, has l ack of transportation kept you from medical appts, meetings, work or from getting things needed for daily living? No 12/25/2022 Utilities Answer Date Recorded In the past 12 months, has t he electric, gas, oil or water [employer] threatened to shut off services in your home? No 12/25/2022 Sex and Gender Information Value Date Recorded [...] 9:30 AM EDT Clinical Support [facility] MEDICINE [address] [place] [address] Mariia Cristina RN [address] [place] [address] documented as of this encounter Visit Diagnoses Diagnosis Other insomnia documented in this encounter Care Teams Marketing Traffic Manager Relationship Specialty Start Date End Date Pauline Figueroa ANP [address] [place] [address] PCP - General Family Medicine 01/28/22 documented as of this encounter
--- OUTSIDE RECORDS SUMMARY | 2024-03-30 09:11 | XMS_ITS | Encounter Summary ---
Author Organization [employer] Address [address] [facility] 7t [place] [address] Care Team Providers Care Real Estate Financial Analyst Name Role Phone Pauline Figueroa Primary Care Provider [phone] Reason for Visit * Reason Comments Med Refill Encounter Details Date Type Department Care Team ([facility] st Contact Info) Description 12/28/2022 Refill [facility] [address] [place], [place] [phone] Pauline Figueroa ANP [address] [place] [address] Chronic bilateral low back pain without sciatica Social History Tobacco Use Types Packs/Day Years Used Date Smoking Tobacco: Never Smokeless Tobacco: Never Alcohol Use Standard Drinks/Week Comments Not Currently 0 (1 standard drink = 0.6 oz pur e alcohol) Housing Stability Answer Date Recorded What is your housing situation today? I have jovitamary ram 12/25/[address] you [...] 9:30 AM EDT Clinical Support [facility] [address] [place] [address] Mariia Cristina, CHERRI 505 [place] [address] documented as of this encounter Visit Diagnoses Diagnosis Chronic bilateral low back pain without sciatica documented in this encounter Care Teams Real Estate Financial Analyst Relationship Specialty Start Date End Date Pauline Figueroa ANP [address] [place] [address] PCP - General Family Medicine 01/28/22 documented as of this encounter
--- OUTSIDE RECORDS SUMMARY | 2024-03-30 09:11 | XMS_ITS | Encounter Summary ---
Author Organization [employer] Address [address] [facility] 7 [place] [address] Care Team Providers Care Blasting Miner Name Role Phone Pauline Figueroa Primary Care Provider [phone] Reason for Visit * Reason Comments Med Refill Encounter Details Date Type Department Care Team (Late st Contact Info) Description 09/05/2022 Refill [facility] MED[facility] 230 [place], [place] [phone] Pauline Figueroa ANP 230 [place] [address] Chronic bilateral low back pain without sciatica Social History Tobacco Use Types Packs/Day Years Used Date Smoking Tobacco: Never Assessed Sex and Gender Information Value Date Recorded Sex Assigned at Male 01/06/2022 10:19 AM EDT Legal Sex Male 10:19 AM EDT Gender Identity Male 01/06/2022 10:19 AM EDT Sexual Orientation Choose not to disclose 2021 10:19 AM EDT COVID-19 Exposure Response Date Recorded In the last 10 days, have yo u been in contact with someone who was confirmed or suspected to have Coronavirus/COVID-19? No / Unsure 08/18/2022 9:05 AM EDT documented as of this encounter Plan of Treatment Upcoming Encounters Date Type Department Care Team (Late st Contact Info) Description 06/10/2024 9:30 AM EDT Clinical Support [facility] MEDICINE [address] [place] [address] Mariia Cristina RN 505 [place] [address] documented as of this encounter Visit Diagnoses Diagnosis Chronic bilateral low back pain without sciatica documented in this encounter Care Teams Blasting Miner Relationship Specialty Start Date End Date Pauline Figueroa ANP 230 [place] [address] PCP - General Family Medicine 01/28/22 documented as of this encounter
--- OUTSIDE RECORDS SUMMARY | 2024-03-30 09:11 | XMS_ITS | Encounter Summary ---
Author Organization [employer] Address [address] [facility] [address]t [place] [address] Care Team Providers Care Plant Wrapper Name Role Phone Pauline Figueroa Primary Care Provider Reason for Visit * Reason Comments Med Refill Encounter Details Date Type Department Care Team ([facility] st Contact Info) Description 05/20/2023 Refill [facility] MED[facility]INE 230 [place], [place] [phone] Pauline Figueroa ANP [address] [place] [address] Chronic bilateral low back pain without sciatica [...] Description 06/10/2024 9:30 AM EDT Clinical Support [facility] MED[facility] [address] [place] [address] Mariia Cristina RN 505 [place] [address] documented as of this encounter Visit Diagnoses Diagnosis Chronic bilateral low back pain without sciatica documented in this encounter Care Teams Plant Wrapper Relationship Specialty Start Date End Date Pauline Figueroa ANP [address] [place] [address] PCP - General Family Medicine 01/28/22 documented as of this encounter
--- OUTSIDE RECORDS SUMMARY | 2024-03-30 09:11 | XMS_ITS | Clinical Summary ---
Author Organization [facility] Address [address] [place] [address], [place] [address] Care Team Providers Care Nuclear Cardiology Technologist Name Role Phone Unavailable Primary Care Provider Unavailabl e Allergies Active Allergy Reactions Criticality Noted Date Comments Pravastatin Other (see comments) 05/24/2020 Medications ezetimibe (Zetia) 10 MG tablet Take 1 tablet by mouth 1 (one) time each day Active hydroCHLOROthia zide (HYDRODIURIL) 25 MG tablet Take 1 tablet by mouth 1 (one) time each day Active metFORMIN XR (GLUCOPHAGE-XR) 500 MG 24 hr tablet Take 1 tablet by mouth 1 (one) time each day Active naproxen (NAPROSYN) 500 MG tablet Take 1 tablet by mouth 2 (two) times a day Active ondansetron ODT (ZOFRAN-ODT) 4 MG dispersible tablet Take 1 tablet by mouth 3 (three) times a day Active rosuvastatin (Crestor) 5 MG tablet Take 1 tablet by mouth 1 (one) time each day Active traMADol (ULTRAM) 50 MG tablet Take 1 tablet by mouth 4 (four) times a day Active FREESTYLE LITE test strip TEST BLOOD SUGAR TWICE DAILY 1 Active metFORMIN (GLUCOPHAGE) 500 MG tablet Take 500 mg by mouth 2 (two) times a day with meals 1 Active morphine (MS CONTIN) 15 MG 12 hr tablet TAKE 1 TABLET BY MOUTH EVERY TWELVE HOURS 1 Active oxyCODONE-aceta minophen (PERCOCET) 5-325 MG per tablet TAKE 1 TABLET BY MOUTH EVERY 8 HOURS NEEDED FOR PAIN BREAKTHROUGH 1 Active Viagra 50 MG tablet TAKE 1 TABLET 1 HOUR BEFORE SEXUAL RELATIONS ONCE DAILY NEEDED. 1 Active traZODone (DESYREL) 50 MG tablet Take 50 mg by mouth at bed time Active Active Problems Problem Noted Date Diagnosed Date Renal stone 05/24/2020 Type 2 diabetes mellitus without complication Social History Tobacco Use Types Packs/Day Years Used Date Smoking Tobacco: Never Alcohol Use Standard Drinks/Week Comments No 0 (1 standard drink = 0.6 oz pur e alcohol) Sex and Gender Information Value Date Recorded Sex Assigned at Not on file Legal Sex Male 5:07 PM EST Gender Identity Not on file Sexual Orientation Not on file Plan of Treatment Health Maintenance Due Date Last Done Comments Colorectal Cancer Screening: Annual FOBT 2009 Colorectal Cancer Screening: Colonoscopy 2009 Colorectal Cancer Screening: Sigmoidoscopy 2009 Diabetes: Hemoglobin A1C 04/09/2020 Diabetes: Ophthalmology Exam 04/09/2020 Diabetes: Pedal Pulse Checked 04/09/2020 Diabetes: Sensory Foot Exam 04/09/2020 Diabetes: Visual Foot Exam 04/09/2020 Influenza Vaccine (#1) 2023 Hepatitis B Vaccine Aged Out No longe r eligible based on patient's age to complete this topic Pneumococcal Vaccine: Pediat rics (0 to 5 Years) and At-Risk Patients (6 to 64 Years) Aged Out No longer eligible b ased on patient's age to complete this topic Insurance ([id number]) ARIK BLANDON [id number] [place] [address] ([id number])
--- OUTSIDE RECORDS SUMMARY | 2024-03-30 09:11 | XMS_ITS | Encounter Summary ---
Author Organization [employer] Address [address] [facility] 7t [place] [address] Care Team Providers Care Brake Shoe Rebuilder Name Role Phone Pauline Figueroa Primary Care Provider [phone] Reason for Visit * Reason Comments Med Refill Encounter Details Date Type Department Care Team ([facility] Contact Info) Description 03/05/2023 Refill [facility] MEDICINE [address] [place], [place] [phone] Pauline Figueroa ANP 230 [place] [address] Erectile dysfunction, unspecified erectile dysfunction type Social History Tobacco Use Types Packs/Day [...] Description 06/10/2024 9:30 AM EDT Clinical Support [facility] [address] [place] [address] Mariia Cristina RN 505 [place] [address] documented as of this encounter Visit Diagnoses Diagnosis Erectile dysfunction, unspecified erectile dysfunction type documented in this encounter Care Teams Brake Shoe Rebuilder Relationship Specialty Start Date End Date Pauline Figueroa ANP [address] [place] [address] PCP - General Family Medicine 01/28/22 documented as of this encounter
--- OUTSIDE RECORDS SUMMARY | 2024-03-30 09:11 | XMS_ITS | Encounter Summary ---
Author Organization [employer] Address [address] [facility] [address]t [place] [address] Care Team Providers Care Heavy Duty Diesel Mechanic Name Role Phone Pauline Figueroa Primary Care Provider Reason for Visit * Reason Comments Med Refill Encounter Details Date Type Department Care Team ([facility] Contact Info) Description 01/25/2024 Refill [facility] MEDICINE [address] [place], [place] [phone] Pauline Figueroa ANP [address] [place] [address] Chronic bilateral low back pain without sciatica [...] 9:30 AM EDT Clinical Support [facility] MEDICINE [address] [place] [address] Mariia Cristina RN [address] [place] [address] documented as of this encounter Visit Diagnoses Diagnosis Chronic bilateral low back pain without sciatica documented in this encounter Additional Health Concerns Assessment Noted Time PHQ-9 Depression Total Score: 0 12/24/19 24 9:47 AM EDT documented as of this encounter Care Teams Heavy Duty Diesel Mechanic Relationship Specialty Start Date End Date Pauline Figueroa ANP [address] [place] [address] PCP - General Family Medicine 01/28/22 documented as of this encounter
--- OUTSIDE RECORDS SUMMARY | 2024-03-30 09:11 | XMS_ITS | Encounter Summary ---
Author Organization [employer] Address [address] [facility] 7t [place] [address] Care Team Providers Care Dental Mechanic Name Role Phone Pauline Figueroa Primary Care Provider [phone] Reason for Visit * Reason Comments Med Refill Encounter Details Date Type Department Care Team ([facility] st Contact Info) Description 05/12/2023 Refill [facility] MED & PEDS [address] [place], [place] [phone] Pauline Figueroa ANP [address] [place] [address] Chronic constipation Social History Tobacco Use Types [...] t he electric, gas, oil or water [employer] threatened to shut off services in your [...] Description 06/10/2024 9:30 AM EDT Clinical Support [facility] MEDICINE 230 [place] [address] Mariia Cristina RN 505 [place] [address] documented as of this encounter Visit Diagnoses Diagnosis Chronic constipation Unspecified constipation documented in this encounter Care Teams Dental Mechanic Relationship Specialty Start Date End Date Pauline Figueroa ANP [address] [place] [address] PCP - General Family Medicine 01/28/22 documented as of this encounter
--- OUTSIDE RECORDS SUMMARY | 2024-03-30 09:11 | XMS_ITS | Encounter Summary ---
Author Organization [employer] Address [address] [facility] 7t [place] [address] Care Team Providers Care Screw Supervisor Name Role Phone Pauline Figueroa Primary Care Provider [phone] Reason for Visit * Reason Comments Med Refill Encounter Details Date Type Department Care Team ([facility] st Contact Info) Description 04/16/2023 Refill [facility] MED[facility] 230 [place], [place] [phone] Pauline Figueroa ANP [address] [place] [address] Erectile dysfunction, unspecified erectile dysfunction type Social [...] Description 06/10/2024 9:30 AM EDT Clinical Support [facility] [address] [place] [address] Mariia Cristina RN [address] [place] [address] documented as of this encounter Visit Diagnoses Diagnosis Erectile dysfunction, unspecified erectile dysfunction type documented in this encounter Care Teams Screw Supervisor Relationship Specialty Start Date End Date Pauline Figueroa ANP [address] [place] [address] PCP - General Family Medicine 01/28/22 documented as of this encounter
--- OUTSIDE RECORDS SUMMARY | 2024-03-30 09:11 | XMS_ITS | Encounter Summary ---
Author Organization [employer] Address [address] [facility] 7t [place] [address] Care Team Providers Care Coal Chemist Name Role Phone Pauline Figueroa Primary Care Provider [phone] Reason for Visit * Reason Comments Med Refill Encounter Details Date Type Department Care Team ([facility] st Contact Info) Description 04/22/2023 Refill [facility] MED [facility] PEDS [address] [place], [place] [phone] Pauline Figueroa ANP 230 [place] [address] Chronic midline low back pain, unspecified whether [...] 9:30 AM EDT Clinical Support [facility]INE [address] [place] [address] Mariia Cristina RN 505 [place] [address] documented as of this encounter Visit Diagnoses Diagnosis Chronic midline low back pain, unspecified whether sciatica present documented in this encounter Care Teams Coal Chemist Relationship Specialty Start Date End Date Pauline Figueroa ANP [address] [place] [address] PCP - General Family Medicine 01/28/22 documented as of this encounter
--- OUTSIDE RECORDS SUMMARY | 2024-03-30 09:11 | XMS_ITS | Encounter Summary ---
Author Organization [employer] Address [address] [facility] 7t [place] [address] Care Team Providers Care Freelance Programmer/App Developer Name Role Phone Pauline Figueroa Primary Care Provider [phone] Reason for Visit * Reason Comments Med Refill Encounter Details Date Type Department Care Team ([facility] st Contact Info) Description 10/01/2023 Refill [facility] MED & PEDS [address] [place], [place] [phone] Pauline Figueroa ANP 230 [place] [address] Chronic bilateral low back pain without sciatica [...] 9:30 AM EDT Clinical Support [facility] MEDICINE [address] [place] [address] Mariia Cristina, CHERRI [address] [place] [address] documented as of this encounter Visit Diagnoses Diagnosis Chronic bilateral low back pain without sciatica documented in this encounter Care Teams Freelance Programmer/App Developer Relationship Specialty Start Date End Date Pauline Figueroa ANP 230 [place] [address] PCP - General Family Medicine 01/28/22 documented as of this encounter
--- OUTSIDE RECORDS SUMMARY | 2024-03-30 09:11 | XMS_ITS | Encounter Summary ---
Author Organization [employer] Address 75 [facility] 7t [place] [address] Care Team Providers Care Tile Decorator Name Role Phone Pauline Figueroa Primary Care Provider [phone] Reason for Visit * Reason Comments Med Refill Encounter Details Date Type Department Care Team ([facility] st Contact Info) Description 05/01/2023 Refill [facility] MEDICINE [address] [place], [place] [phone] Pauline Figueroa ANP [address] [place] [address] Erectile dysfunction, unspecified erectile dysfunction type Social [...] Description 06/10/2024 9:30 AM EDT Clinical Support [facility] MEDICINE [address] [place] [address] Mariia Cristina RN [address] [place] [address] documented as of this encounter Visit Diagnoses Diagnosis Erectile dysfunction, unspecified erectile dysfunction type documented in this encounter Care Teams Tile Decorator Relationship Specialty Start Date End Date Pauline Figueroa ANP 230 [place] [address] PCP - General Family Medicine 01/28/22 documented as of this encounter
--- OUTSIDE RECORDS SUMMARY | 2024-03-30 09:11 | XMS_ITS | Encounter Summary ---
Author Organization [employer] Address 75 [facility] 7t [place] [address] Care Team Providers Care Bead Supervisor Name Role Phone Pauline Figueroa LILO Primary Care Provider [phone] Reason for Visit * Reason Comments Med Refill Encounter Details Date Type Department Care Team ([facility] st Contact Info) Description 10/20/2023 Refill [facility] MED & PEDS [address] [place] [address] Shahana Ny MD [address] [place] [address] Chronic bilateral low back pain without sciatica [...] Description 06/10/2024 9:30 AM EDT Clinical Support [facility] MEDICINE [address] [place] [address] Mariia Cristina RN 505 [place] [address] documented as of this encounter Visit Diagnoses Diagnosis Chronic bilateral low back pain without sciatica documented in this encounter Care Teams Bead Supervisor Relationship Specialty Start Date End Date Pauline Figueroa ANP [address] [place] [address] PCP - General Family Medicine 01/28/22 documented as of this encounter
--- OUTSIDE RECORDS SUMMARY | 2024-03-30 09:11 | XMS_ITS | Encounter Summary ---
Author Organization [employer] Address [address] [facility] 7t [place] [address] Care Team Providers Care Pipe Fitter Helper Name Role Phone Pauline Figueroa LILO Primary Care Provider [phone] Reason for Visit * Reason Comments Med Refill Encounter Details Date Type Department Care Team ([facility] st Contact Info) Description 03/25/2023 Refill [facility] MED & PEDS [address] [place], [place] [phone] Delfina Sy MD 230 [place] [address] Chronic midline low back pain, unspecified whether [...] Description 06/10/2024 9:30 AM EDT Clinical Support [facility] MEDICINE [address] [place] [address] Mariia Cristina RN 505 [place] [address] documented as of this encounter Visit Diagnoses Diagnosis Chronic midline low back pain, unspecified whether sciatica present documented in this encounter Care Teams Pipe Fitter Helper Relationship Specialty Start Date End Date Pauline Figueroa ANP [address] [place] [address] PCP - General Family Medicine 01/28/22 documented as of this encounter
--- OUTSIDE RECORDS SUMMARY | 2024-03-30 09:11 | XMS_ITS | Encounter Summary ---
Author Organization [employer] Address 75 [facility] 7t [place] [address] Care Team Providers Care Tape Calender Name Role Phone Pauline Figueroa Primary Care Provider [phone] Reason for Visit * Reason Comments Med Refill Encounter Details Date Type Department Care Team ([facility] st Contact Info) Description 04/24/2023 Refill [facility] MEDICINE 230 [place], [place] [phone] Pauline Figueroa ANP [address] [place] [address] Insomnia, unspecified type Social History Tobacco Use [...] t he electric, gas, oil or water [employer] threatened to shut off services in your [...] Description 06/10/2024 9:30 AM EDT Clinical Support [facility] MEDICINE [address] [place] [address] Mariia Cristina RN [address] [place] [address] documented as of this encounter Visit Diagnoses Diagnosis Insomnia, unspecified type documented in this encounter Care Teams Tape Calender Relationship Specialty Start Date End Date Pauline Figueroa ANP [address] [place] [address] PCP - General Family Medicine 01/28/22 documented as of this encounter
--- OUTSIDE RECORDS SUMMARY | 2024-03-30 09:11 | XMS_ITS | Encounter Summary ---
Author Organization [employer] Address [address] [facility] [address] [address] Care Team Providers Care Soft Tile Setter Name Role Phone Pauline Figueroa Primary Care Provider Reason for Visit * Reason Onset Date Comments Med Refill 03/27/2022 Encounter Details Date Type Department Care Team ([facility] st Contact Info) Description 03/27/[address] [facility] MEDICINE [address] [place], [place] [phone] Pauline Figueroa ANP [address] [place] [address] Med Refill Social History Tobacco Use Types [...] suspected to have Coronavirus/COVID-19? No / Unsure 03/12/2022 9:15 AM EST documented as of this encounter Miscellaneous Notes * Telephone Encounter - Rojas Pressley - 03/27/2022 9:30 AM EST Tc from pt requesting med refill Oxycodone mg documented in this encounter Plan of Treatment Upcoming Encounters Date Type Department Care Team (Late st Contact Info) Description 06/10/2024 9:30 AM EDT Clinical Support [facility] MEDICINE [address] [place] [address] Mariia Cristina RN [address] [place] [address] documented as of this encounter Visit Diagnoses Not on filedocumented in this encounter Care Teams Soft Tile Setter Relationship Specialty Start Date End Date Pauline Figueroa ANP [address] [place] [address] PCP - General Family Medicine 01/28/22 documented as of this encounter
--- OUTSIDE RECORDS SUMMARY | 2024-03-30 09:11 | XMS_ITS | Encounter Summary ---
Author Organization [employer] Address [address] [facility] 7t [place] [address] Care Team Providers Care Paper Tube Cutter Name Role Phone Pauline Figueroa Primary Care Provider [phone] Reason for Visit * Reason Onset Date Comments Med Refill 04/28/2023 Encounter Details Date Type Department Care Team ([facility] st Contact Info) Description 04/28/2023 Telephone [facility] MEDICINE 230 [place], [place] [phone] Pauline Figueroa ANP [address] [place] [address] Med Refill Social History Tobacco Use Types [...] t he electric, gas, oil or water [employer] threatened to shut off services in your home? No 12/25/2022 Sex and Gender Information Value Date Recorded Sex Assigned at Male 01/06/2022 10:19 AM EDT Legal Sex Male 10:19 AM EDT Gender Identity Male 01/06/2022 10:19 AM EDT Sexual Orientation Choose not to disclose 2021 10:19 AM EDT documented as of this encounter Miscellaneous Notes * Telephone Encounter - Nataliia Altamirano LPN - 05/05/2023 1:43 PM EST Viagra not pended as Patient has used 60 tablet since 03/12/23.Please review * Telephone Encounter - Scott Carey - 05/05/2023 1:38 PM EST Tc from pt requesting refill on med requested. Milling Machine Tender confirmed with pharmacy pt does not have any refills left. ( Viagra ) Please contact at [phone] * Telephone Encounter - Lizzy Diez LPN - 04/28/2023 9:32 AM EST Melatonin was sent on 03/26/23 with 2 refills and Viagra was sent on 03/12/23 #20 with 2 refills. * Telephone Encounter - Brenna Villatoro - 04/28/2023 9:16 AM EST TC from pt requesting medication refill. Medications needing refill : melatonin 5 MG tablet sildenafil (Viagra) 50 MG tablet To be sent to: [facility] [place] - [address] documented in this encounter Plan of Treatment Upcoming Encounters Date Type Department Care Team (Late st Contact Info) Description 06/10/2024 9:30 AM EDT Clinical Support [facility] MED[facility]INE [address] [place] [address] Mariia Cristina RN 505 [place] [address] documented as of this encounter Visit Diagnoses Not on filedocumented in this encounter Care Teams Paper Tube Cutter Relationship Specialty Start Date End Date Pauline Figueroa ANP 230 [place] [address] PCP - General Family Medicine 01/28/22 documented as of this encounter
[2024-03-30 12:22] LABS: Estimated Average Glucose 151 mg/dL; Hemoglobin A1C 207.3016 umol/L; Hemoglobin A1c % 6.9 % (<6.0); Total Hemoglobin (HGBA1C) 3964.3789 umol/L
[2024-03-30 12:25] LABS: Anion Gap 12 (12-20); Blood Urea Nitrogen 10 mg/dL (9-16); Calcium 9.9 mg/dL (8.4-10.2); Carbon Dioxide 26 mmol/L (22-29); Chloride 106 mmol/L (96-108); Estimated Glomerular Filt Rate > 60; Glucose Random 124 mg/dL (60-115); Potassium 3.5 mmol/L (3.3-5.1); Sodium 140 mmol/L (135-145)
[2024-03-30 12:38] LABS: Creatinine Urine 139.61 mg/dL; Microalbum/Creatinine Ratio Ur 7.1 ug/mg cr (<30)
== END 2024-03-30 08:53 | disposition home or self-care (01) ==
LOC: HO.HHCL 08:52
PROVIDERS: Visit Provider Nurse Practitioner Primary Care
DX: E11.69 Type 2 diabetes mellitus with other specified complication (principal); E78.5 Hyperlipidemia, unspecified; E83.52 Hypercalcemia
CPT/HCPCS: 36415; 80048; 82043; 82570; 83036